=== PATIENT | female | born 1975 | race Caucasian/White ===

== ENCOUNTER 2020-05-15 07:24 | Outpatient (CLI) | payer BC | END 2020-05-15 07:25 | disposition home or self-care (01) | LOC: CSHCT 07:24 | PROVIDERS: ATTEND Internal Medicine Hematology & Oncology | DX: C85.20 Mediastinal (thymic) large B-cell lymphoma, unspecified site (principal); Z98.890 Other specified postprocedural states; K59.00 Constipation, unspecified | CPT/HCPCS: 70491; 71260; 74177 ==

== ENCOUNTER 2021-02-05 10:26 | Outpatient (CLI) | payer BC | END 2021-02-05 10:27 | disposition home or self-care (01) | LOC: CSHMAMMO 10:26 | PROVIDERS: ATTEND Internal Medicine Hematology & Oncology | DX: Z12.31 Encounter for screening mammogram for malignant neoplasm of breast (principal); Z85.72 Personal history of non-Hodgkin lymphomas | CPT/HCPCS: 77063; 77067 ==

== ENCOUNTER 2021-12-04 08:39 | Outpatient (CLI) | payer BC ==
[2021-12-04] MEDS ORDERED: Iopamidol 300 61% 100 ML VIAL FS ONE (14:14)
== END 2021-12-04 08:40 | disposition home or self-care (01) ==
LOC: CSHCT 08:39
PROVIDERS: ATTEND Internal Medicine Hematology & Oncology
DX: C85.20 Mediastinal (thymic) large B-cell lymphoma, unspecified site (principal)
CPT/HCPCS: 70491; 71260; 74177; Q9967